=== PATIENT | male | born 1940 | race Caucasian/White ===

== ENCOUNTER → 2024-03-11 14:22 | Outpatient (REF) | payer MEDICARE, BC, SELFPAY | LOC: RAD 14:22 | PROVIDERS: ATTENDING PHYSICIAN Internal Medicine Critical Care Medicine; FAMILY PHYSICIAN Internal Medicine Geriatric Medicine | DX: R60.0 Localized edema (principal) | CPT/HCPCS: 93970 ==

== ENCOUNTER → 2024-06-27 13:14 | Outpatient (REF) | payer MEDICARE, BC, SELFPAY | LOC: HWRAD 13:14 | PROVIDERS: ATTENDING PHYSICIAN Internal Medicine Geriatric Medicine | DX: Z00.00 Encounter for general adult medical examination without abnormal findings (principal); I10 Essential (primary) hypertension; N40.1 Benign prostatic hyperplasia with lower urinary tract symptoms; E78.2 Mixed hyperlipidemia; G47.33 Obstructive sleep apnea (adult) (pediatric); E55.9 Vitamin D deficiency, unspecified; I63.9 Cerebral infarction, unspecified; R73.01 Impaired fasting glucose; R01.1 Cardiac murmur, unspecified; I70.0 Atherosclerosis of aorta; I45.2 Bifascicular block; Z13.31 Encounter for screening for depression; G60.9 Hereditary and idiopathic neuropathy, unspecified; R22.41 Localized swelling, mass and lump, right lower limb | CPT/HCPCS: 76536; 93971 ==

== ENCOUNTER → 2024-10-17 09:17 | Outpatient (REF) | payer MEDICARE, BC, SELFPAY | LOC: RAD 09:17 | PROVIDERS: ATTENDING PHYSICIAN Otolaryngology; FAMILY PHYSICIAN Internal Medicine Geriatric Medicine | DX: K21.9 Gastro-esophageal reflux disease without esophagitis (principal) | CPT/HCPCS: 74221 ==